=== PATIENT | female | born 1990 | race Caucasian/White ===

== ENCOUNTER 2016-11-09 11:56 | Emergency (ER) | payer MEDICAID, OTHER ==
[~2016-11-09 11:56] MED LIST: PERC5TAB12 PO; PREN0.01 PO
[2016-11-09 12:00] VITALS: BP 135/74; PULSE 98; RESP 16; TEMP 98.1; O2SAT 98
--- NOTE | 2016-11-09 12:02 | PD ---
Physical Exam Date Seen by Provider: Nov 09, 2016 Time Seen by Provider: 11:59 Narrative Pt presents with left facial swelling and left upper tooth pain. Symptoms started yesterday afternoon. Pt denies any fevers, chills, nausea and vomiting. Pt also c/o facial pressure and pain with opening her mouth. Pt went to the ER in [place] and was prescribed penicillin which she states she completed but symptoms returned after the abx were finished. VSS, awaiting bed placement. MDM Supervised Visit with DARIA: Yarely Serrano Nov 09, 2016 12:02
--- NOTE | 2016-11-09 12:10 | PD ---
HPI Chief Complaint: Oral / Dental Pain or Problem Time Seen by Provider: 12:10 Travel History International Travel<30 days: No Contact w/Intl Traveler<30days: No Traveled to known affect area: No History of Present Illness HPI 18-year-old female presents to the emergency Department with complaint of left upper dental pain. She had dental pain last month and was seen at [facility] and was given penicillin which she finished taking maximal 2 weeks ago. Her symptoms subsided at that time and then have recurred in the past few days. Denies fever, vomiting. Denies sore throat or difficulty swallowing. Has been taking ibuprofen for symptom management. Symptoms are moderate in severity. Has no medical complaints. Allergies to Flagyl. i factors or associated signs and symptoms. PFSH Past Surgical History Pacemaker: No Social History Alcohol Use: No Tobacco Use: Yes (1/2 pack per day) Allergies-Medications (Allergen,Severity, Reaction): Coded Allergies: bee venom protein (honey bee) (Unverified Allergy, Severe, SWELLING,SOB, ) metronidazole (Unverified Allergy, Severe, RENAL FAILURE, 10/27/16) Reported Meds & Prescriptions Reported Meds & Active Scripts Active Peridex Liq (Chlorhexidine Gluconate (Mouth) Liq) 0.12% Soln 15 Ml SWISH-SPIT BID 10 Days Ibuprofen 800 Mg Tab 800 Mg PO Q6HR PRN Clindamycin (Clindamycin HCl) 150 Mg Cap 450 Mg PO Q6H 10 Days Reported Percocet 5-325 mg (Oxycodone/Acetaminophen) 5 Mg/325 Mg Tab 1 Tab PO Q6HPRN Vit ( Plus) (Prenat Multivit/[place]/Iron/Folic Ac) Tab 1 Tab PO DAILY Review of Systems Except as stated in HPI: all other systems reviewed are Neg Physical Exam Narrative GENERAL: Well-nourished, well-developed female patient, in no acute distress; afebrile, nontoxic-appearing SKIN: Warm and dry. HEAD: Atraumatic. Normocephalic. Left cheek facial edema; without erythema; with tenderness on palpation. No lymphadenopathy. EYES: Pupils equal and round. No scleral icterus. No injection or drainage. ENT: Mucosa pink and moist. No erythema or exudates. No uvular edema. No uvular , palatal, or tonsillar deviation. Airway patent. MOUTH: Mucous membranes moist, no lesions, tongue and gums appear normal. Tooth #12 with tenderness on palpation; large decay with tooth to gumline. Partially edentulous to the upper front teeth and wears partial denture. Surrounding gingiva is without erythema, edema, drainage. No obvious abscess noted. NECK: Trachea midline. No lymphadenopathy. CARDIOVASCULAR: Regular rate. RESPIRATORY: No accessory muscle use. GASTROINTESTINAL: Flat. MUSCULOSKELETAL: No obvious deformities. No clubbing. No cyanosis. No edema. NEUROLOGICAL: Awake and alert. Oriented 3. No obvious cranial nerve deficits. Motor grossly within normal limits. Normal speech. PSYCHIATRIC: Appropriate mood and affect; insight and judgment normal. Data Data Last Documented VS Vital Signs Date Time Temp Pulse Resp B/P (MAP) Pulse Ox O2 Delivery O2 Flow Rate FiO2 11/09/16 12:00 98.1 98 16 135/74 (94) 98 Orders Orders Clindamycin Inj (Cleocin Inj) (11/09/16 12:15) Ketorolac Inj (Toradol Inj) (11/09/16 12:15) Prednisone (Deltasone) (11/09/16 12:15) MDM Medical Decision Making Medical Screen Exam Complete: Yes Emergency Medical Condition: Yes Medical Record Reviewed: Yes Differential Diagnosis Infected dental caries, dental abscess, gingivitis Narrative Course 26-year-old female with large dental cavity to tooth #12 and possible dental abscess. Left facial edema. Patient is afebrile and nontoxic-appearing. Denies fever, vomiting. Was previously treated with penicillin from [facility] and finished it about 2 weeks ago with reoccurring symptoms a few days ago. Has a follow-up appointment with the dentist on November 28. She is in a call list for cancellations to follow-up earlier. Clindamycin 600 mg IM and Deltasone administered in the ER. Toradol administered in the ER. Clindamycin , ibuprofen, Deltasone, Peridex mouth rinse prescribed for home. Instructed patient to follow up with dentist. Instructed patient to follow up with primary care provider. Patient verbalizes understanding and agreement with treatment plan. Patient is medically cleared and stable for discharge. Discussed reasons to return to the emergency department. Patient agrees with treatment plan. The patients vital signs are stable and the patient is stable for outpatient follow-up and treatment. Patient discharged home, stable and in no acute distress. Diagnosis Primary Impression: Dental abscess Referrals: [facility] Dentist Primary Care Physician Patient Instructions: Dental Abscess (ED), Dental Caries (ED), General Instructions, Toothache (ED) Departure Forms: Tests/Procedures, Work Release Enter return to work date: Nov 11, 2016 Additional Instructions: Complete full course of antibiotics Ibuprofen or Tylenol as directed and as needed to reduce pain and inflammation Use Peridex as directed for oral hygiene Warm or cool compresses to the affected area Follow-up with dentist Follow-up with primary care provider Return to emergency department immediately with worsening of symptoms Med/Other Pt SpecificInfo: Prescription(s) given Scripts Prednisone (Deltasone) 20 Mg Tab 40 MG PO DAILY for 4 Days, TAB 0 Refills start 11/10/2016 Prov: Sury Navarro 11/09/16 Chlorhexidine Gluconate (Mouth) Liq (Peridex Liq) 0.12% Soln 15 ML SWISH-SPIT BID for 10 Days, #473 ML 0 Refills Prov: Sury Navarro 11/09/16 Ibuprofen (Ibuprofen) 800 Mg Tab 800 MG PO Q6HR Y for PAIN, #30 TAB 0 Refills Prov: Sury Navarro 11/09/16 Clindamycin (Clindamycin) 150 Mg Cap 450 MG PO Q6H for Infection for 10 Days, CAP 0 Refills Prov: Sury Navarro 11/09/16 Disposition: 01 DISCHARGE HOME Condition: Stable Sury Navarro Nov 09, 2016 12:10
[2016-11-09] MEDS ORDERED: IBUP800T23 PO (12:13)
[2016-11-09] MEDS ORDERED: PERI0.126 SWISH-SPIT (12:13)
[2016-11-09] MEDS ORDERED: CLIN1CAP5 PO (12:13)
[2016-11-09] MEDS ORDERED: predniSONE 20 MG TAB PO ONE (12:15)
[2016-11-09] MEDS ORDERED: KETOROLAC TROMETHAMINE 60 MG/2 ML (IM) VIAL IM ONE (12:15)
[2016-11-09] MEDS ORDERED: CLINDAMYCIN PHOS 600 MG/4 ML VIAL IM ONE (12:15)
[2016-11-09] MEDS ORDERED: PRED-503 PO (12:19)
== END 2016-11-09 13:34 | disposition home or self-care (01) ==
LOC: NEPK 11:56
DX: K04.7 Periapical abscess without sinus (principal); K02.9 Dental caries, unspecified; F17.200 Nicotine dependence, unspecified, uncomplicated
CPT/HCPCS: 96372; 99284; J1885; J7512